=== PATIENT | female | born 1990 | race African-American/Black ===

== ENCOUNTER 2023-11-26 19:31 | Emergency (ER) | payer OTHER ==
[~2023-11-26] VITALS: Ht 172.7 cm; Wt 159.7 kg
[2023-11-26] MEDS ORDERED: NAPROSYN500 MG PO (22:30)
[2023-11-26 22:44] VITALS: BP 135/84; PULSE 74; RESP 18; TEMP 98.3; O2SAT 100
== END 2023-11-26 22:39 | disposition home or self-care (01) ==
LOC: FSED 19:37
DX: S83.8X2A Sprain of other specified parts of left knee, initial encounter (principal); W01.0XXA Fall on same level from slipping, tripping and stumbling without subsequent striking against object, initial encounter; Y92.89 Other specified places as the place of occurrence of the external cause; G40.909 Epilepsy, unspecified, not intractable, without status epilepticus; F41.9 Anxiety disorder, unspecified; F32.A Depression, unspecified; E66.01 Morbid (severe) obesity due to excess calories
CPT/HCPCS: 99284

== ENCOUNTER 2025-03-20 20:05 | Emergency (ER) | payer OTHER ==
[~2025-03-20] VITALS: Ht 175.3 cm; Wt 167.8 kg
[~2025-03-20 20:05] MED LIST: NAPROSYN500 MG PO
[2025-03-20 20:15] VITALS: PULSE 90; RESP 18; TEMP 97.9
[2025-03-20] MEDS ORDERED: ALBUTEROL/IPRATROPIUM 3 ML NEB NEB ONE (20:30)
[2025-03-20] MEDS: ALBUTEROL/IPRATROPIUM 3 ML NEB NEB ONE (20:53)
[2025-03-20] MEDS: SODIUM CHLORIDE 0.9% 1000ML 1,000 ML IV STA (20:54)
[2025-03-20] MEDS: DIPHENHYDRAMINE HCL INJ 50 MG/ML VIAL IV ONE (20:54)
[2025-03-20] MEDS: METHYLPREDNISOLONE SOD SUCC 125 MG/2ML VIAL IV ONE (20:55)
[2025-03-20] MEDS: FAMOTIDINE 20 MG/2 ML VIAL IV ONE (20:55)
[2025-03-20] MEDS ORDERED: IPRAT-ALBUT 0.5-3 ML NEB (21:33)
[2025-03-20] MEDS ORDERED: DIPHENHYDRAMINE25 M2 PO (21:33)
[2025-03-20] MEDS ORDERED: EPIPEN JR0.15 MG/01 SQ (21:33)
[2025-03-20] MEDS ORDERED: ONDANSETRON ODT4 MG PO (21:33)
[2025-03-20] MEDS ORDERED: PREDNISONE20 MG PO (21:33)
[2025-03-20] MEDS: ONDANSETRON HCL INJ 2MG/ML 2ML 2 MG/ML VIAL IV ONE (21:47)
[2025-03-20 22:20] VITALS: BP 168/99; PULSE 90; RESP 18; TEMP 98; O2SAT 94
== END 2025-03-20 22:20 | disposition home or self-care (01) ==
LOC: FSED 20:19
DX: R06.02 Shortness of breath (principal); T78.1XXA Other adverse food reactions, not elsewhere classified, initial encounter; J45.909 Unspecified asthma, uncomplicated; G40.909 Epilepsy, unspecified, not intractable, without status epilepticus; F41.9 Anxiety disorder, unspecified; F32.A Depression, unspecified
CPT/HCPCS: 99282; J1200; J1308; J2405; J2919; J7030